=== PATIENT | female | born 1950 | race Caucasian/White ===

== ENCOUNTER 2020-03-23 05:34 | Inpatient (IN) ==
--- NOTE | 2020-03-23 05:51 | PROVIDER DOCUMENTATION ---
HPI-Abdominal Pain/GI Problem - General Chief Complaint: Rectal Bleeding Stated Complaint: RECTAL BLEEDING Time Seen by Provider: 03/23/20 05:45 Source: patient Allergies/Adverse Reactions: Patient Allergies Allergy/AdvReac Type Severity Reaction Status Date / Time No Known Allergies Allergy Verified 03/23/20 05:41 Home Medications: Home Medication List Medication Instructions Recorded Confirmed Last Taken Type Amlodipine Besylate [Norvasc] 5 mg PO DAILY 03/12/15 03/23/20 10/26/16 History Atorvastatin Calcium [Lipitor] 20 mg PO DAILY 03/12/15 03/23/20 10/26/16 History Isosorbide Mononitrate E.r. [Imdur] 30 mg PO DAILY 03/12/15 03/23/20 10/26/16 H istory Levothyroxine [Synthroid] 100 microgm PO DAILY 03/12/15 03/23/20 10/26/16 History Carvedilol [Coreg] 6.25 mg PO BID 10/27/16 03/23/20 10/26/16 History Cholecalciferol (Vitamin D3) 1,000 unit PO DAILY 10/27/16 03/23/20 10/26/16 History [Vitamin D3] Cyanocobalamin (Vitamin B-12) 1,000 mcg PO DAILY 10/27/16 03/23/20 10/26/16 History [Vitamin B12] Loperamide HCl/Simethicone 2 cap PO PRN PRN 10/27/16 03/23/20 Unknown History [Imodium Multi-Symptom Rel Cplt] Potassium Chloride [K-Tab ER] 20 meq PO DAILY #14 tablet.er 05/30/17 03/23/20 Unknown Rx Albuterol [Albuterol Neb] 2.5 mg INH Q4H PRN PRN #10 neb 09/03/17 03/23/20 Unknown Rx Nebulizer [Aeroneb Go Nebulizer] 1 each MC ONCE #1 each 09/03/17 03/23/20 Unknown Rx Aripiprazole 5 mg PO DAILY 03/23/20 03/23/20 Unknown History Furosemide [Lasix] 20 mg PO DAILY 03/23/20 03/23/20 Unknown History Mirtazapine [Remeron] 30 mg PO DAILY 03/23/20 03/23/20 Unknown History Olanzapine [Zyprexa] 15 mg PO DAILY 03/23/20 03/23/20 Unknown History Omeprazole 40 mg PO DAILY 03/23/20 03/23/20 Unknown History Rivaroxaban [Xarelto] 20 mg PO DAILY 03/23/20 03/23/20 Unknown History - History of Present Illness-ABD Nature of Presenting Problems: has hematochezia off on for month on xarelto for afib and clots no cva nhas some liteheadedness Abdominal Pain Onset Location: reports: other (no pain) Pain Radiation: reports: no radiation Quality of Pain: reports: none Severity in ED: reports: mild Onset/Duration: reports: 24 hours ago Timing: reports: still present Activities at Onset: reports: none Exposure to sick contacts?: No Modifying Factors: improves with: nothing Associated Symptoms: reports: diarrhea, vomiting. denies: constipation, loss of appetite Last BM: other (1 hour ago) Dark Stools Present?: reports: bright red blood Rectal Bleeding: reports: bloody diarrhea (10 bm since yesterday) Rectal Pain: reports: none # of Vomiting Episodes: 2 Emesis Description: reports: red blood, coffee grounds Bruising or Bleeding Gums?: Yes Similar Symptoms Previously?: Yes Recently seen or treated by another doctor?: Yes Review of Systems - Adult - REVIEW OF SYSTEMS - ADULT Constitutional: reports: no symptoms reported Eyes: reports: no symptoms reported Ears, Nose, Mouth & Throat: reports: no symptoms reported Cardiovascular: reports: chest pain Respiratory: reports: shortness of breath, wheezing. denies: hemoptysis Gastrointestinal: reports: see HPI Genitourinary: reports: no symptoms reported Musculoskeletal: reports: no symptoms reported Integumentary: reports: no symptoms reported Neurological: reports: no symptoms reported Endocrine: reports: no symptoms reported Hematologic/Lymphatic: reports: no symptoms reported Allergic/Immunologic: reports: no symptoms reported Past History - Adult - PAST MEDICAL HISTORY-ADULT Review of Records: reports: Nursing Assessment Review, Medications Reviewed Major Childhood Illnesses: reports: denies history Cardiovascular: reports: A-Fib, arrhythmia, HTN, hyperlipidemia Respiratory: reports: COPD, lung disease Gastrointestinal: reports: GERD Obstetrical/Gynecological: reports: denies history Genitourinary: reports: denies history Musculoskeletal: reports: arthritis, chronic pain (back) Neurological: reports: denies history Psychiatric: reports: anxiety Endocrine/Immune: reports: denies history Other Conditions: reports: denies history - PRIOR SURGERIES/PROCEDURES Surgical/Procedure History: reports: BTL, other (lung surgery) - IMMUNIZATION STATUS Childhood Immunizations: See Nurse Assessment Flu Vaccine: See Nurse Assessment - FAMILY HISTORY Family History: reviewed, not pertinent - SOCIAL HISTORY Smoking: quit greater than 1 year Substance Use: none/never Alcohol Use Frequency: never Physical Exam-General - PHYSICAL EXAM-ADULT Initial Vital Signs Reviewed: Yes - CONSTITUTIONAL General Appearance: appears well, alert, no apparent distress - EYES Eyes: PERRL/EOMI, pink conjunctivae - HEAD, EARS, NOSE, MOUTH & THROAT HENMT: normocephalic/atraumatic, moist mucous membranes, normal ENT inspection - NECK Neck: supple - RESPIRATORY Respiratory: lungs clear, decreased breath sounds - CARDIOVASCULAR Cardiovascular: irregularly irregular - GASTROINTESTINAL (ABDOMEN) Abdominal Exam: normal bowel sounds, non tender, soft - LYMPHATIC Lymphatic: no adenopathy, axilla node tender - MUSCULOSKELETAL Back Exam: normal inspection Extremity: normal range of motion, non-tender, normal gait - SKIN Integumentary: normal color, normal turgor - NEUROLOGIC 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, grossly normal - PSYCHIATRIC Psych/Mental Status: oriented x 3 Progress - PLAN OF CARE/RESULTS Progress/Plan/Lab Results: Vital Signs - 8 hr 03/23/20 05:35 Temperature 98.1 F Pulse Rate 102 H Respiratory Rate 18 Blood Pressure 152/77 O2 Sat by Pulse Oximetry 94 L Orders Category Date Time Status NEWS Score 2-4:Order NEWS Lactate Series NOW Care 03/23/20 05:41 Active LACTATE, PLASMA [CHEM] Q3H Lab 03/23/20 05:45 Uncollected LACTATE, PLASMA [CHEM] Q3H Lab 03/23/20 08:45 Uncollected LACTATE, PLASMA [CHEM] Q3H Lab 03/23/20 11:45 Uncollected Result Diagrams: 03/23/20 05:50 03/23/20 05:50 - CT/MRI 1 CT Study: Abdomen, Pelvis Impression: Normal Departure - Departure Date of Disposition Decision: 03/23/20 Time of Disposition Decision: 08:44 DIAGNOSIS: Lower GI bleeding Disposition: ADMITTED INPATIENT 09 Certified Medical Emergency: Emergent Condition: Stable Referrals and Follow-Ups: Arabella Hayward CRNP [Primary Care Provider] - - Critical Care Note This patient required my direct & personal management of CC.: No Attestation - Physician/ JESSE Attestation Patient care was provided by Advanced Practice Provider:: No The physician spent face to face time with patient:: Yes Advanced Practice Provider documentation review:: Supervising physician onsite and consulted in the evaluation and care of this patient. The physician did have a face to face encounter with the patient.
[2020-03-23 07:02] LABS: OCCULT BLOOD 1 POSITIVE (NEGATIVE)
[2020-03-23 07:09] LABS: BASO# 0.03 X1000 (0.0-0.2); BASO% 0.2 % (0.0-0.8); EOS# 0.16 X1000 (0.0-0.7); EOS% 1.1 % (0.0-10.0); HEMATOCRIT 40.4 % (37.0-47.0); IMM GRAN# 0.18 X1000 (0.0-0.04); IMM GRAN% 1.2 % (0.0-0.5); LYMPH# 2.47 X1000 (1.2-3.4); MCH 27.8 PG (27-31); MCHC 29.7 g/dL (33-37); MCV 93.7 FL (81-99); MONO# 1.43 X1000 (0.11-0.59); MONO% 9.8 % (1.7-9.3); NEUT# 10.27 X1000 (1.4-6.5); NEUT% 70.7 % (42.2-75.2); PLT 484 X1000 (130-400); RBC 4.31 XMIL (4.2-5.4); RDW 15.9 % (11.5-14.5); WBC 14.54 X1000 (4.8-10.8)
[2020-03-23 07:20] LABS: ALBUMIN 4.3 g/dL (3.5-5.0); CALCIUM 9.4 mg/dL (8.8-10.2); POTASSIUM 3.8 mmol/L (3.5-5.1); TOTAL BILIRUBIN 0.4 mg/dL (0.20-1.00); TOTAL PROTEIN 7.9 g/dL (6.3-8.3)
--- NOTE | 2020-03-23 08:13 | Diag Imaging Result Doc PS360 ---
EXAM: CT ABD/PELVIS W/IV CONT ONLY HISTORY: hematochezia TECHNIQUE: CT abdomen and pelvis with intravenous contrast, but without oral contrast. COMPARISON: 11/15/2013 FINDINGS: There is fatty infiltration of the liver. No calcified gallstones. No splenomegaly. Normal pancreas and right adrenal gland. There is a 19 mm left adrenal nodule. This is unchanged. There is scarring to the right kidney. No renal masses. Questionable tiny nonobstructing right renal stone. No hydronephrosis. Severe atherosclerosis. No aortic aneurysm. No inflammation about the cecum. No abscess. No bowel obstruction. Moderate stool in the rectum. Urinary bladder is moderately distended. The uterus is small. IMPRESSION: 1.Prominent fatty infiltration of the liver 2.Stable left adrenal nodule 3.Stable right renal scarring. Questionable nonobstructing right renal stone. 4.Prominent atherosclerosis This exam was performed using automated exposure control, adjustment of mA or kV according to patient size, and/or use of iterative reconstruction technique. Electronically signed by Mk Gomez 03/23/2020 8:11 AM
[2020-03-23] MEDS ORDERED: IMODIUM PO PRN (11:07)
[2020-03-23] MEDS ORDERED: SODIUM CHLORIDE 0.9% INJ SCH (11:07)
[2020-03-23] MEDS: NS 1,000 ML IV SCH (11:38)
[2020-03-23] MEDS: PROTONIX IV SCH ×2 (11:38→20:35)
--- NOTE | 2020-03-23 12:11 | HISTORY AND PHYSICAL ---
PRIMARY CARE PHYSICIAN: LINDA Cavanaugh. CHIEF COMPLAINT: Rectal bleeding on and off over the past month that progressively worsened with some lightheadedness noted. HISTORY OF PRESENTING ILLNESS: This is a 70-year-old female, who presents to [facility] ER with complaints of bright red rectal bleeding on and off for the past month. States that her stools have been black and tarry. She has had some nausea, vomiting, lightheadedness and dizziness. She is noted to have atrial fibrillation and is on Xarelto. Workup in the emergency room showed a hemoglobin and hematocrit of 12 and 40.4. Stool for occult blood was positive. When she arrived, she had a heart rate of 102. We did do orthostatic blood pressures that showed lying 163/92 with a heart rate of 109, sitting 150/90 with a heart rate of 110, and standing 130/84 with a heart rate of 112. So, she is orthostatic and will be admitted to the [facility] with GI consultation for further evaluation and treatment. PAST MEDICAL HISTORY: Diabetes, hypertension, atrial fibrillation, hypothyroidism, and skin cancer. PAST SURGICAL HISTORY: A left-sided lobectomy and bilateral tubal ligation. FAMILY HISTORY: Reviewed and noncontributory. SOCIAL HISTORY: She currently lives alone, is a former smoker. Denies any alcohol or illicit drug use. ALLERGIES: She has no known drug allergies. HOME MEDICATIONS: 1. Albuterol nebulizer q. 4 hours p.r.n. 2. Norvasc 5 mg p.o. daily. 3. Aripiprazole 5 mg p.o. daily. 4. Lipitor 20 mg p.o. daily. 5. Carvedilol 6.25 mg p.o. b.i.d. 6. Vitamin D 3 1000 units p.o. daily. 7. Vitamin B 12 1000 mcg p.o. daily. 8. Lasix 20 mg p.o. daily. 9. Imdur 30 mg p.o. daily. 10. Synthroid 100 mcg p.o. daily. 11. Imodium 2 capsules p.o. p.r.n. 12. Remeron 30 mg p.o. daily. 13. Zyprexa 15 mg p.o. daily. 14. Omeprazole 40 mg p.o. daily. 15. Potassium 20 mEq p.o. daily. 16. Xarelto 20 mg p.o. daily will be held. LABORATORY DATA: Showed a white blood cell count of 14.54, hemoglobin 12, hematocrit 40.4, platelets 484. Sodium 141, potassium 3.8, chloride 102, CO2 26. BUN of 21, creatinine 1.0, glucose 160, plasma lactate 1.6. Stool for occult blood was positive. IMAGING STUDIES: CT of the abdomen and pelvis showed a prominent fatty infiltration of the liver. Stable left adrenal nodule, stable renal right scarring, questionable nonobstructing right renal stone and prominent atherosclerosis. REVIEW OF SYSTEMS: She denied any fever, chills, blurred vision. She did have some lightheadedness, dizziness, mild shortness of breath. Denied any chest pain, cough. Denied any abdominal pain. She did have some nausea, vomiting, black tarry stools and bright red blood from her rectum. No burning or hurting with urination. PHYSICAL EXAMINATION: VITAL SIGNS: On arrival showed a temperature of 98.1 degrees, pulse 102, respirations 18, blood pressure 152/77, satting 94% on room air. We did do orthostatics as stated earlier; lying 163/92 with a pulse of 109, sitting 150/90 with a pulse of 110, standing 130/84 with a pulse of 112. GENERAL: This is a 70-year-old female, lying in the bed and answers questions appropriately. HENT: Normocephalic, atraumatic. Normal ENT inspection. Oropharynx and nares are clear. EYES: Pupils are equal, round, reactive to light and accommodation. Extraocular movements are intact. NECK: Normal inspection, normal range of motion. LUNGS: Clear to auscultation bilaterally with equal lung expansion and chest wall movement. HEART: Regular rate and rhythm. No murmurs, rubs, or gallops. ABDOMEN: Soft, nontender, nondistended. Bowel sounds are present x4 quadrants. MUSCULOSKELETAL: She had 5/5 strength x4 extremities. NEUROLOGICAL: The cranial nerves 2-12 appear grossly intact. ASSESSMENT: 1. Gastrointestinal bleed. 2. Mild orthostatic hypotension. 3. Leukocytosis, most likely reactive. 4. Atrial fibrillation, history of. PLAN: She will be admitted to the PVC unit at [facility], placed on telemetry, clear liquid diet. We will consult GI. We will do serial hemoglobin and hematocrits q. [address] on Protonix 40 mg IV q. 12 hours. We will hold her Xarelto. We will place her on normal saline at 75 mL an hour. Recheck a CBC and BMP in the a.m. Further orders after seen by attending and by configuration management consultant. We will also place on SCDs for DVT prophylaxis. Dictated by LINDA Paulino for Dony Hernandez MD Addendum: Patient seen and examined by myself. Agree with LINDA note. It reflects my assessment and plan. Patient is being admitted to hospital for GI bleeding. She is also hypotensive and orthostatic so will send her to PVC and will stabilize her. Will place her on Protonix 40 mg IV q12 hr. Will monitor patient closely. cc: LINDA Paulino MD Anna M. Dumas, CRNP MTDD
[2020-03-23 13:04] LABS: URINE SOURCE CLEAN CATCH
[2020-03-23 13:14] LABS: BILIRUBIN URINE NEGATIVE (NEGATIVE); BLOOD URINE SMALL (NEGATIVE); COLOR YELLOW; GLUCOSE URINE NEGATIVE (NEGATIVE); KETONE URINE NEGATIVE (NEGATIVE); LEUKOCYTES URINE LARGE (NEGATIVE); NITRITE URINE POSITIVE (NEGATIVE); PROTEIN URINE TRACE mg/dL (NEGATIVE); TURBIDITY URINE CLEAR (CLEAR); UROBILINOGEN URINE NORMAL (NORMAL)
[2020-03-23 13:16] LABS: UR EPITHELIAL CELLS <10 /HPF (<10); URINE BACTERIA 4+ /HPF; URINE WBC TNTC /HPF (<10)
[2020-03-23 14:43] LABS: HEMATOCRIT 40.7 % (37.0-47.0); HEMOGLOBIN 11.9 g/dL (12.0-16.0)
[2020-03-23] MEDS: TYLENOL PO PRN (15:37)
--- NOTE | 2020-03-23 18:06 | GASTROENTEROLOGY CONSULTATION ---
DATE: 03/23/2020 REQUESTING PHYSICIAN: Dr. Jimenez. REASON FOR CONSULT: GI bleed. HISTORY: This is a 70-year-old white female with multiple medical problems. She is hypertensive with a history of chronic atrial fibrillation, has been on anticoagulant she takes Xarelto. She was admitted to hospital after she presented to the emergency room at [place] with the complaints of bright red blood per rectum. She tells me that her symptoms have been going on for some time now. She would have episodes of dark stool associated with some bright red blood per rectum as well and she has noticed a good bit of bleeding which recently which brought in the emergency room after she started complaining of some weakness and lightheadedness. She denies any chest pain, palpitation but complains of some shortness of breath. She has been dizzy and lightheaded. She complains of nausea and occasionally vomiting. It usually happens in the morning. She has had some indigestion. Denies dysphagia, odynophagia. She complains of some abdominal pain in the left lower quadrant area but no change in the caliber of the stool. Has not had any dysuria, polyuria or hematuria. PAST MEDICAL HISTORY: Significant for hypertension, hypothyroidism and history of chronic atrial fibrillation, diabetes. PAST SURGICAL HISTORY: She has had tubal ligation. MEDICATIONS: Prior to hospitalization she has been on Xarelto, potassium chloride, omeprazole, Zyprexa, Remeron, she takes Imodium as needed, Synthroid, Imdur, Lasix, B12, vitamin D3, Coreg, Lipitor, aripiprazole, Norvasc and albuterol nebulizer. ALLERGIES: No drug allergies. SOCIAL HISTORY: She lives with her daughter. Apparently she is disabled. She does not smoke. Does not drink, does not use illicit drugs. FAMILY HISTORY: Is noncontributory. REVIEW OF SYSTEMS: As per HPI as above. EXAMINATION: Very pleasant white female. She is overweight. She is lying in bed, conscious, alert, appears to be in no distress. Temperature is 98.4 degrees, pulse is 94 per minute, breathing under 17, blood pressure 146/82. She weighs 191 pounds, she is 5 feet 5 inches tall. Head is atraumatic, normocephalic. Eyes, conjunctivae normal. Sclerae anicteric. Nares are patent. No discharge noted. Mouth buccal mucosa is moist. Throat is normal. Neck: Supple. No lymphadenopathy or thyromegaly. Chest: Bilaterally symmetrical, it is moving with respirations. Breath sounds audible bilaterally. No rhonchi or crepitations could be heard. Heart: Audible, no murmur could be appreciated. Abdomen: Full, soft, mildly tender in the epigastric area. Similarly she was mildly tender in the left lower quadrant area also. No rebound tenderness. No guarding noted. Bowel sounds are audible. No pedal edema, cyanosis, clubbing was noted. EVISCERATOR: Grossly intact. No sensory or motor deficit noted. LABORATORIES: Reviewed which showed WBC 14.5, hemoglobin 11.9, hematocrit 40.7, MCV was 93.7, platelets were 484,000. Sodium 141, potassium 3.8, chloride 102, bicarb 26, BUN is 21, creatinine 1.0, glucose 160 and LFTs were normal. IMPRESSION: This 70-year-old white female who has been on Xarelto for chronic atrial fibrillation. She has presented with episodes of melenic stool as well as bright red blood per rectum. She is mildly anemic but she was symptomatic. She has presented with dizziness, lightheadedness and she was orthostatic at the emergency room. She was admitted, hydrated and feels much better. She needs endoscopic evaluation. We will proceed with EGD and colonoscopy. Will have to give her time. Her last dose of Xarelto was yesterday morning. Wednesday would be appropriate to proceed with EGD and colonoscopy. That will give us enough time at least more than 48 hours for her to be off of Xarelto to proceed with endoscopy. In the meantime, agree with rechecking hemoglobin and hematocrit, transfuse if necessary and continue PPI and continue current treatment. Rest of the medical treatment as per team. I have explained the findings and plan to the patient. She understands and agrees to proceed. She will be scheduled for Wednesday. cc: Lalo Erazo MD
[2020-03-23 20:03] LABS: HEMOGLOBIN 11.4 g/dL (12.0-16.0)
[2020-03-23] MEDS: COREG PO SCH (20:35)
[2020-03-23] MEDS: PERCOCET-10 PO PRN (20:35)
[2020-03-24] MEDS: NS 1,000 ML IV SCH ×2 (00:10→13:35)
[2020-03-24 02:10] LABS: HEMATOCRIT 36.4 % (37.0-47.0); HEMOGLOBIN 10.7 g/dL (12.0-16.0)
[2020-03-24] MEDS: ZOFRAN IV PRN (03:50)
[2020-03-24] MEDS: SYNTHROID PO SCH ×2 (05:39→06:04)
[2020-03-24 05:59] LABS: BASO# 0.02 X1000 (0.0-0.2); BASO% 0.2 % (0.0-0.8); EOS# 0.12 X1000 (0.0-0.7); EOS% 1.4 % (0.0-10.0); HEMATOCRIT 36.7 % (37.0-47.0); HEMOGLOBIN 10.6 g/dL (12.0-16.0); IMM GRAN# 0.09 X1000 (0.0-0.04); LYMPH# 1.68 X1000 (1.2-3.4); LYMPH% 19.4 % (20.5-51.1); MCH 27.3 PG (27-31); MCHC 28.9 g/dL (33-37); MCV 94.6 FL (81-99); MONO# 0.78 X1000 (0.11-0.59); MPV 10.5 FL (7.4-10.4); NEUT# 5.98 X1000 (1.4-6.5); PLT 379 X1000 (130-400); RBC 3.88 XMIL (4.2-5.4); RDW 15.9 % (11.5-14.5); WBC 8.67 X1000 (4.8-10.8)
[2020-03-24 06:19] LABS: AGAP 10; BUN 12 mg/dL (8-22); CALCIUM 8.3 mg/dL (8.8-10.2); CHLORIDE 105 mmol/L (98-107); COSMO 280; CREATININE 0.8 mg/dL (0.5-0.9); ESTIMATED GFR > 60; GLUCOSE 140 mg/dL (70-104); POTASSIUM 3.6 mmol/L (3.5-5.1); SODIUM 139 mmol/L (136-145); TCO2 24 mmol/L (25-35)
[2020-03-24 07:02] LABS: EOS 1 % (1-10); LYMPHS 17 % (21-51); MONO 6 % (1-9); SEGS 76 % (42-75)
[2020-03-24] MEDS: ALBUTEROL NEB INH PRN (08:00)
[2020-03-24] MEDS: ZYPREXA PO SCH (08:04)
[2020-03-24] MEDS: VITAMIN D PO SCH (08:04)
[2020-03-24] MEDS: VITAMIN B-12 PO SCH (08:04)
[2020-03-24] MEDS: KLOR-CON PO SCH (08:04)
[2020-03-24] MEDS: ABILIFY PO SCH (08:05)
[2020-03-24] MEDS: LASIX PO SCH (08:05)
[2020-03-24] MEDS: NORVASC PO SCH (08:05)
[2020-03-24] MEDS: COREG PO SCH ×2 (08:05→21:14)
[2020-03-24] MEDS: REMERON PO SCH (08:05)
[2020-03-24] MEDS: IMDUR PO SCH (08:05)
[2020-03-24] MEDS: PROTONIX IV SCH ×2 (08:07→21:14)
[2020-03-24] MEDS: PERCOCET-10 PO PRN ×2 (10:14→21:14)
[2020-03-24] MEDS ORDERED: ZANAFLEX PO ONE (11:08)
[2020-03-24] MEDS ORDERED: ROCEPHIN 1 GM in NS 50 ML IV ONE (11:12)
--- NOTE | 2020-03-24 11:38 | PROGRESS NOTE ---
DATE: 03/24/2020 SUBJECTIVE: I have seen and examined Ms. Acuña today. Ms. Acuña refers to be doing much better. She says she has had some back pains and chronic cramps in her legs. Ms. Acuña reported initially to [place] because of rectal bleeding that had been going on for some time, associated with dizziness. Upon presenting, she was found to be orthostatic positive. She was brought in. She was transferred from [place] to [facility] for a higher level of care. She has been evaluated by GI and there is a plan for EGD and colonoscopy tomorrow. Hemoglobin and hematocrit remain fairly stable, and they are trending down steadily. OBJECTIVE: Current Vital Signs: Blood pressure 154/86, pulse of 99, respirations are 20, temperature is 98.6 degrees, patient is saturating 99% on room air. General Examination: Ms. Acuña is a 70-year-old, female. She is obese with a BMI of 31.8. She is in bed. She is not in any cardiopulmonary distress. HEENT: Mucosa is pink, slightly dry. Anicteric. Acyanotic. Neck: Supple. Chest: Clear to auscultation. There were no crepitations, no rhonchi. Cardiovascular: Regular rate and rhythm. I did not hear any murmurs. No rubs, no gallops. GI: Abdomen is soft and distended but nontender. Bowel sounds are present. Extremities: No pedal edema. Distal pulses are present. BARYTES GRINDER: The patient is awake, alert, oriented. There is no focal deficit. Laboratory Data: WBC is 8.69, hemoglobin is 10.6, platelet count of 379,000. Chemistry is also reviewed and is completely unremarkable. ASSESSMENT: 1. Symptomatic orthostatic hypotension secondary to intravascular depletion. 2. Anemia secondary to gastrointestinal bleed. 3. Melena with bright red blood per rectum. 4. History of atrial fibrillation, on Xarelto. Xarelto has been withheld. The patient is currently actually in sinus rhythm. 5. Remote history of pulmonary embolism. 6. Hypertension. 7. Dyslipidemia. 8. Chronic diarrhea. Hopefully, the esophagogastroduodenoscopy and colonoscopy will give us some insight. 9. Gram-negative rosi urinary tract infection. Patient has been started on ceftriaxone. We have to wait on the identification and sensitivity. cc: Yash Dickens MD
--- NOTE | 2020-03-24 13:19 | GASTROENTEROLOGY PROGRESS NOTE ---
DATE: 03/24/2020 SUBJECTIVE: I have spoken with the nurse. She states that she has not had any further bleeding so far today. Last reported bowel movement was documented liquid brown. Hemoglobin and hematocrit today are 10.6 and 36.7. OBJECTIVE: Vital Signs: Temperature 98.2 degrees, pulse 94, respirations 18, blood pressure 138/66. LABORATORY DATA: Hematology: WBC 8.67, hemoglobin 10.6, hematocrit 36.7, MCV 94.6, platelets 379,000. Chemistry: Sodium 139, potassium 3.6, chloride 105, CO2 of 24, BUN 12, creatinine 0.8, glucose 140, calcium 8.3. ASSESSMENT AND PLAN: 1. Rectal bleeding. 2. History of atrial fibrillation, on chronic anticoagulant, Xarelto, which has been held. 3. Melena. 4. Dizziness, lightheadedness, orthostatic hypotension. Will continue to follow for any further active bleeding. Monitor hemoglobin and hematocrit, and transfuse packed red blood cells if needed. Hold Xarelto. Continue proton pump inhibitor. Will plan for esophagogastroduodenoscopy and colonoscopy on Wednesday for further evaluation. The patient wishes to proceed. She was seen by Dr. Erazo yesterday. Further plans to be made according to findings. I have discussed this case with Dr. Erazo. Dictated by LINDA Santana for Lalo Erazo MD cc: LINDA Ramachandran MD
[2020-03-24] MEDS ORDERED: GOLYTELY PO ONE (14:00)
[2020-03-24] MEDS ORDERED: LIPITOR PO SCH (21:00)
[2020-03-25] MEDS: NS 1,000 ML IV SCH (02:45)
[2020-03-25] MEDS: ZOFRAN IV PRN (06:10)
[2020-03-25] MEDS: TYLENOL PO PRN (06:10)
[2020-03-25] MEDS: SYNTHROID PO SCH (06:46)
[2020-03-25 06:51] LABS: BASO# 0.02 X1000 (0.0-0.2); BASO% 0.2 % (0.0-0.8); EOS# 0.14 X1000 (0.0-0.7); EOS% 1.6 % (0.0-10.0); HEMATOCRIT 34.5 % (37.0-47.0); HEMOGLOBIN 10.1 g/dL (12.0-16.0); IMM GRAN# 0.05 X1000 (0.0-0.04); IMM GRAN% 0.6 % (0.0-0.5); LYMPH# 1.73 X1000 (1.2-3.4); MCH 27.5 PG (27-31); MCHC 29.3 g/dL (33-37); MONO# 0.77 X1000 (0.11-0.59); MONO% 8.9 % (1.7-9.3); MPV 10.8 FL (7.4-10.4); NEUT# 5.94 X1000 (1.4-6.5); NEUT% 68.7 % (42.2-75.2); PLT 370 X1000 (130-400); RBC 3.67 XMIL (4.2-5.4); RDW 15.8 % (11.5-14.5); WBC 8.65 X1000 (4.8-10.8)
[2020-03-25 07:14] LABS: AGAP 13; ALBUMIN 3.6 g/dL (3.5-5.0); BUN 6 mg/dL (8-22); CHLORIDE 108 mmol/L (98-107); COSMO 291; CREATININE 0.7 mg/dL (0.5-0.9); ESTIMATED GFR > 60; GLUCOSE 118 mg/dL (70-104); POTASSIUM 3.4 mmol/L (3.5-5.1); SODIUM 147 mmol/L (136-145); TCO2 26 mmol/L (25-35)
[2020-03-25] MEDS: ZYPREXA PO SCH (08:10)
[2020-03-25] MEDS: LASIX PO SCH (08:11)
[2020-03-25] MEDS: PROTONIX IV SCH (08:11)
[2020-03-25] MEDS: VITAMIN B-12 PO SCH (08:11)
[2020-03-25] MEDS: VITAMIN D PO SCH (08:11)
[2020-03-25] MEDS: KLOR-CON PO SCH (08:11)
[2020-03-25] MEDS: ABILIFY PO SCH (08:11)
[2020-03-25] MEDS: COREG PO SCH (08:11)
[2020-03-25] MEDS: NORVASC PO SCH (08:11)
[2020-03-25] MEDS: IMDUR PO SCH (08:11)
[2020-03-25] MEDS: REMERON PO SCH (08:11)
[2020-03-25] MEDS: PERCOCET-10 PO PRN (08:17)
[2020-03-25] MEDS: ALBUTEROL NEB INH PRN (08:52)
[2020-03-25] MEDS ORDERED: ROCEPHIN 1 GM in NS 50 ML IV SCH (09:00)
--- NOTE | 2020-03-25 09:32 | EKG Report ---
Test Performed on : 03/25/2020 09:18:27 AM Test Reason : pre op Blood Pressure : / mmHG Vent. Rate : 093 BPM Atrial Rate : 093 BPM P-R Int : 164 ms QRS Dur : 080 ms QT Int : 352 ms P-R-T Axes : 063 001 033 degrees QTc Int : 437 ms Normal sinus rhythm. Normal ECG When compared with ECG of 03-SEP-2017 13:55, No significant change was found Confirmed by Mynor VERDUZCO, Ronn Carvajal ([id number]) on 03/25/2020 4:22:12 PM
[2020-03-25] MEDS ORDERED: D5 1/2 NS + KCL 20 MEQ 1,000 ML IV SCH (11:00)
--- NOTE | 2020-03-25 11:21 | PROGRESS NOTE ---
DATE: 03/25/2020 SUBJECTIVE: I have seen and examined Ms. Acuña. This morning Ms. Acuña refers to be doing well. She denies any more bloody stool. OBJECTIVELY: Vital Signs: Blood pressure is 115/78, pulse of 100, respirations 19, temperature 98.3 degrees. The patient is saturating 97% on room air. General: Ms. Acuña is a 70-year-old female. She is in bed, in no distress. HEENT: Mucosa is pink. Anicteric. Acyanotic. Neck: Supple. I did not see any JVD. Respiratory System: There is good air entry bilaterally. No crepitations and no rhonchi. Cardiovascular: Regular rate and rhythm. No murmurs, no rubs, no gallops. Gastrointestinal: The abdomen is distended, but nontender. Bowel sounds present. Extremities: No pedal edema. Distal pulses present. Central Nervous System: The patient is awake, alert, oriented x3. There is no focal deficit. LABORATORY DATA: Hemoglobin is 10.1. Rest of CBC is unremarkable. Chemistry is also reviewed. Sodium is 147, potassium 3.1. Urine culture showing Escherichia coli, pansensitive. ASSESSMENT AND PLAN: 1. Symptomatic anemia secondary to gastrointestinal bleed. 2. Orthostatic hypotension. 3. Melena with bright red blood per rectum due to gastrointestinal bleed. 4. History of atrial fibrillation, on Xarelto. This has been withheld. 5. Remote history of pulmonary embolism. 6. Hypertension and dyslipidemia, controlled. 7. Coli urinary tract infection. The patient is on ceftriaxone. 8. Chronic diarrhea, improved. cc: Yash Dickens MD
[2020-03-25] MEDS ORDERED: DIPRIVAN 1% ONE ×2 (12:13→12:50)
--- NOTE | 2020-03-25 13:18 | ENDOSCOPY OPERATIVE NOTE ---
[facility] ENDOSCOPY OPERATIVE NOTE , EGD PROCEDURE REPORT PATIENT: Марина Acuña ADMISSION DATE: 03/25/2020 MR#: [id number] : 1950 PROCEDURE DATE: 03/25/2020 SURGEON: Lalo Erazo MD STATUS: inpatient DEGREASING SOLUTION RECLAIMER: Marcela Oreilly and Brandon Quinn PREOPERATIVE DIAGNOSIS: The patient is a 70 yr old female here for an EGD due to acute post hemorrha gic anemia. PROCEDURE PERFORMED: EGD, diagnostic MEDICATIONS: Per Anesthesia TOPICAL ANESTHETIC: none CONSENT: The patient understands the risks and benefits of the procedure and understands that these r isks include, but are not limited to: sedation, allergic reaction, infection, perforation and/or bleeding. Alternative means of evaluation and treatment include, among others: physical exam, x-rays, and/or surgical intervention. The patient elects to proceed with this endoscopic procedure. HISORY AND PHYSICAL: 03/25/2020 DESCRIPTION OF PROCEDURE: During intra-op preparation period all mechanical and medical equipment was checked for proper function. Hand hygiene and appropriate measures for infection prevention was taken. After the risks, benefits and alternatives of the procedure were thoroughly explained, Informed consent was verified, confirmed and timeout was successfully executed by the treatment team. The patient was anesthetized with topical anesthesia and the FL68-m90 ([id number]) and [id number]-[id number] ([id number]) endoscope was introduced through the mouth and advanced to the seco nd portion of the duodenum. Retroflexion was performed in the stomach and revealed no abnormalities. The gastroscope was then slowly withdrawn and removed. ESOPHAGUS: The esophagus and gastroesophageal junction were completely normal in appearance. There w ere no ulcers, erosions, polyps, varices or indications of West's. STOMACH: The stomach appeared normal. There were no ulcers, erosions, masses or AV malformations. DUODENUM: The duodenal bulb was normal in appearance as was the postbulbar duodenum. There were no u lcers, erosions or malformations in the entire examined duodenum [MANUEVER]. SPECIMENS REMOVED: No ADVERSE EVENTS: There were no complications. POSTOPERATIVE DIAGNOSIS: 1. The esophagus and gastroesophageal junction were completely normal i n appearance. There were no ulcers, erosions, polyps, varices or indications of West's 2. The stomach appeared normal. There were no ulcers, erosions, masses or AV malformations 3. The duodenal bulb was normal in appearance as was the postbulbar duodenum. There were no ulcers, erosions or malformations in the entire examined duodenum RECOMMENDATIONS: 1. Resume pre-procedure medications 2. Continue to colonoscopy procedure REPEAT EXAM: Lalo Erazo MD eSigned: Lalo Erazo MD 03/25/2020 1:17 PM cc: LINDA Mujica PATIENT NAME: Марина Acuña MR#: [id number]
--- NOTE | 2020-03-25 13:23 | ENDOSCOPY OPERATIVE NOTE ---
[facility] ENDOSCOPY OPERATIVE NOTE , COLONOSCOPY PROCEDURE REPORT PATIENT NAME: Марина Acuña ADMISSION DATE: 03/25/2020 MR #: [id number] BIRTHDATE: 1950 SURGEON: Lalo Erazo MD DOLLY OPERATOR: Marcela Quinn PROCEDURE DATE: 03/25/2020 STATUS: inpatient INDICATIONS: The patient is a 70 yr old female here for a colonoscopy due to rectal bleeding and ane griselda, non-specific. PROCEDURE PERFORMED: Colonoscopy, diagnostic MEDICATIONS: Per Anesthesia PREP TYPE: GoLytely
[2020-03-25] MEDS ORDERED: XARELTO PO SCH (13:36)
[2020-03-25 15:28] VITALS: BP 118/63
[2020-03-26] MEDS ORDERED: PRILOSEC PO SCH (07:00)
--- NOTE | 2020-03-26 08:01 | DISCHARGE SUMMARY ---
ADMISSION DATE: 03/23/2020 DISCHARGE DATE: 03/25/2020 DISPOSITION: Home. FOLLOWUP: 1. Ms. Arabella Hayward. 2. Dr. Erazo. CONSULTATIONS DURING THIS ADMISSION: GI was consulted. Patient was seen by Dr. Erazo. INVASIVE PROCEDURES DONE DURING THIS ADMISSION: 1. A colonoscopy was done which showed normal findings. 2. An EGD also showed normal findings, no abnormality. ADMISSION DIAGNOSES: 1. Gastrointestinal bleed. 2. Mild orthostatic hypotension. 3. History of atrial fibrillation. DIAGNOSES AT THE TIME OF DISCHARGE: 1. Dizziness secondary to orthostatic hypotension from intravascular depletion. 2. Mild anemia secondary to gastrointestinal bleed. 3. History of atrial fibrillation, on chronic Xarelto. 4. Remote history of pulmonary embolism. 5. Hypertension and dyslipidemia. 6. Escherichia coli urinary tract infection. 7. Polypharmacy with multiple psychotropic medications. 8. Coronary arthrosclerosis. DISCHARGE MEDICATIONS: 1. Atorvastatin 20 mg p.o. daily. 2. Imdur 30 mg p.o. daily. 3. Levothyroxine 100 mcg p.o. daily. 4. Amlodipine 5 mg p.o. daily. 5. Loperamide. 6. Carvedilol 6.25 mg b.i.d. 7. Aripiprazole 5 mg p.o. daily. 8. Furosemide 20 mg p.o. daily. 9. Omeprazole 40 mg p.o. daily. 10. Xarelto 20 mg p.o. daily. 11. Mirtazapine. 12. Olanzapine 50 mg p.o. daily. 13. Levofloxacin 100 mg p.o. daily. 14. Venofer 1 daily. PRESENTING COMPLAINT: Rectal bleed. HISTORY OF PRESENTING COMPLAINT: Ms. Acuña is a 70-year-old, female with a history of atrial fibrillation, hypothyroidism, diabetes mellitus, hypertension, and psychiatric disease, on chronic medications, including which the patient is on Xarelto for the atrial fibrillation, stroke prophylaxis. Came to the [facility] because of rectal bleed and melena for the past month, associated with lightheadedness. Upon presenting to the emergency room, the patient was found to be orthostatic positive. She was admitted to the [facility] for further medical care. HOSPITAL COURSE: Ms. Acuña was resuscitated after admission. Xarelto was discontinued. GI was consulted. She was seen by Dr. Erazo. After she became hemodynamically stable, EGD and colonoscopy were done, both of which came back negative. Recommendations were given to resume her home medications including the Xarelto. I spoke personally with Dr. Erazo who recommended that there was nothing of concern on the endoscopies and that the patient could start her Xarelto. When I came to evaluate Ms. Acuña, Ms. Acuña refers to be doing well. She has been able to tolerate her diet. She think she is stable to be discharged. She is clinically stable. She has no more orthostatic and she is not dizzy so we are going to discharge her. We have started her back on her medications. I have, however, advised Ms. Acuña to review with her primary care doctor about all the different psychotropic medications that she is on to make sure that she still meets criteria to be taking them. All the discharge instructions have been discussed with her. She voiced understanding. Time spent for discharge is 34 minutes. The patient was started on ceftriaxone. She will be transitioned to p.o. levofloxacin to complete 5 days of antimicrobial coverage. cc: Yash Dickens MD
== END 2020-03-25 16:40 | disposition home health service (06) | DRG 378 ==
LOC: P.ED 05:34 → SUATTDRO 10:04 → 2N 10:04
PROVIDERS: ATTEND Internal Medicine